=== PATIENT | female | born 1965 | race Caucasian/White ===

== ENCOUNTER 2019-08-03 20:51 | Emergency (ER) | payer MEDICARE, OTHER ==
[~2019-08-03] VITALS: Ht 167.6 cm; Wt 90.7 kg
[~2019-08-03 20:51] MED LIST: AMBIEN 10 MG TA10 MG PO; BUTRANS1 EAC1 TRANSDERM; CIPRO500 MG PO; CIPROFLOXACIN500 M1 PO; CLONAZEPAM 1 MG1 M1; CYMBALTA60 MG PO; ESTRACE1 MG; FLAGYL500 MG PO; GEODON20 MG PO; IBUPROFEN 800800 M1 PO; LAMICTAL100 MG PO; LAMOTRIGINE150 MG; LASIX 40 MG TAB40 MG; LEVOTHYROXIN0.125 M1 PO; LISINOPRIL-HCT1 EACH; LITHIUM CARBON300 M3; MACROBID 100 M100 M1 PO; NORCO 10-325 T1 EACH PO; NORCO 5-325 TA1 EACH PO; OMEPRAZOLE20 M1 PO; PAMELOR50 MG PO; PERCOCET 10-321 EACH; PERCOCET PO; PHENERGAN25 MG RE; PYRIDIUM200 MG PO; ROBAXIN 750 MG750 M1 PO; SENNA8.6 MG PO; TRAZODONE HCL100 MG PO; TRICOR145 MG; VALIUM PO; VALIUM5 MG; VALIUM5 MG PO; VICODIN 5-3001 EACH PO; WHEELCHAIR1 EACH MC; XANAX1 MG PO; ZOFRAN 4 MG ORAL4 M1 DIS
[2019-08-03] MEDS ORDERED: MIRTAZAPINE30 M1 PO (21:07)
[2019-08-03] MEDS ORDERED: SEROQUEL XR 30300 M1 PO (21:08)
[2019-08-03] MEDS ORDERED: HYDROXYZINE HCL25 M2 PO (22:36)
[2019-08-03] MEDS ORDERED: CENTANY30 GM TOP (22:36)
[2019-08-03] MEDS ORDERED: KEFLEX500 M1 PO (22:36)
[2019-08-03 23:10] VITALS: BP 118/80
== END 2019-08-03 23:11 | disposition home or self-care (01) ==
LOC: M.ERS 20:51
DX: S91.312A Laceration without foreign body, left foot, initial encounter (principal); S80.12XA Contusion of left lower leg, initial encounter; M25.562 Pain in left knee; F31.9 Bipolar disorder, unspecified; F41.9 Anxiety disorder, unspecified; Z98.84 Bariatric surgery status; Z90.89 Acquired absence of other organs; Z90.49 Acquired absence of other specified parts of digestive tract; Z90.710 Acquired absence of both cervix and uterus; Z98.890 Other specified postprocedural states; Z88.1 Allergy status to other antibiotic agents; Z88.5 Allergy status to narcotic agent; Z91.018 Allergy to other foods; Z91.013 Allergy to seafood; W01.0XXA Fall on same level from slipping, tripping and stumbling without subsequent striking against object, initial encounter; Y93.01 Activity, walking, marching and hiking; Y92.89 Other specified places as the place of occurrence of the external cause; Y99.8 Other external cause status

== ENCOUNTER 2019-11-21 13:02 | Emergency (ER) | payer MEDICARE, OTHER ==
[~2019-11-21] VITALS: Ht 165.1 cm; Wt 102.5 kg
[~2019-11-21 13:02] MED LIST changes: +CENTANY30 GM TOP; +HYDROXYZINE HCL25 M2 PO; +KEFLEX500 M1 PO; +MIRTAZAPINE30 M1 PO; +SEROQUEL XR 30300 M1 PO
[2019-11-21] MEDS ORDERED: FUROSEMIDE 20 M20 MG PO (13:30)
[2019-11-21 14:14] LABS: ABSOLUTE BASOPHILS 0.1 thou/uL (0.0-0.2); ABSOLUTE EOSINOPHILS 0.2 thou/uL (0.0-0.7); ABSOLUTE LYMPHOCYTES 2.1 thou/uL (0.8-5.3); ABSOLUTE MONOCYTES 0.4 thou/uL (0.0-1.2); BASOPHILS 1.2 %; EOSINOPHILS 2.1 %; HEMATOCRIT 30.2 % (37.0-47.0); HEMOGLOBIN 9.6 gm/dL (12.0-15.0); LYMPHOCYTES 27.3 %; MCH 22.5 pg (26.0-34.0); MCHC 31.8 g/dL (28.0-37.0); MCV 70.8 fL (80.0-100.0); MONOCYTES 4.7 %; MPV 7.1 fl. (7.2-11.1); NUCLEATED RBCS 0 /100WBC; PLATELET COUNT* 302 thou/uL (150-400); POLYS 64.7 %; RBC 4.26 mil/uL (4.20-5.00); RDW-CV 17.2 % (10.5-14.5); WBC 7.8 thou/uL (4.0-11.0)
[2019-11-21 14:23] LABS: CALCIUM 7.9 mg/dL (8.5-10.1); CREATININE 0.7 mg/dL (0.6-1.3); POTASSIUM 3.8 mmol/L (3.5-5.1)
[2019-11-21 14:28] LABS: ALBUMIN 3.5 g/dL (3.4-5.0); TOTAL BILIRUBIN 0.2 mg/dL (<0.1-1.0); TOTAL PROTEIN 6.8 g/dL (6.4-8.2)
[2019-11-21 14:52] LABS: PLATELET ESTIMATE ADEQUATE
[2019-11-21 14:52] LABS: URINE BILIRUBIN NEGATIVE (Negative); URINE BLOOD NEGATIVE (Negative); URINE CLARITY CLEAR; URINE COLOR YELLOW; URINE GLUCOSE-RANDOM NEGATIVE (Negative); URINE KETONES NEGATIVE (Negative); URINE LEUKOCYTES-REFLEX TRACE (Negative); URINE NITRITE-REFLEX NEGATIVE (Negative); URINE PROTEIN NEGATIVE (Negative); URINE SPECIFIC GRAVITY 1.025 (1.005-1.030); URINE UROBILINOGEN 0.2 E.U./dl (0.2-1.0)
[2019-11-21 14:53] LABS: ANISOCYTOSIS 2+; HYPOCHROMASIA 2+
[2019-11-21 14:54] LABS: MICROCYTES 2+
[2019-11-21 15:00] LABS: AMP/METHAMP Negative (Negative); BARBITURATES Negative (Negative); BENZODIAZEPINES Negative (Negative); COCAINE Negative (Negative); METHADONE Negative (Negative); OPIATES Negative (Negative); PCP Negative (Negative); THC Negative (Negative)
[2019-11-21 15:01] LABS: SQUAMOUS >10 Many /LPF (0-3); URINE WBC-REFLEX 6-15 Few /HPF (0-5)
[2019-11-21 15:02] LABS: BACTERIA-REFLEX >30 Many /HPF (None Seen); CASTS None Seen /LPF (None Seen); CRYSTALS None Seen /LPF (None Seen); MUCUS None Seen strn/LPF (None Seen); URINE RBC 0-2 Rare /HPF (0-2)
[2019-11-21 15:09] LABS: ACETAMINOPHEN < 2 ug/mL (10-30); ALCOHOL < 10 mg/dL (<10); SALICYLATE < 2.8 mg/dL (2.8-20.0)
[2019-11-21 16:04] VITALS: BP 129/86
== END 2019-11-21 16:11 | disposition home or self-care (01) ==
LOC: M.ERS 13:02
PROVIDERS: Emergency Medicine
DX: T36.1X1A Poisoning by cephalosporins and other beta-lactam antibiotics, accidental (unintentional), initial encounter (principal); F31.9 Bipolar disorder, unspecified; F41.9 Anxiety disorder, unspecified; Z90.89 Acquired absence of other organs; Z98.84 Bariatric surgery status; Z90.710 Acquired absence of both cervix and uterus; Z90.49 Acquired absence of other specified parts of digestive tract; Z88.1 Allergy status to other antibiotic agents; Z88.5 Allergy status to narcotic agent; Z91.013 Allergy to seafood; Y92.89 Other specified places as the place of occurrence of the external cause